=== PATIENT | male | born 1985 | race Caucasian/White ===

== ENCOUNTER 2017-02-03 20:10 | Emergency (ER) | payer SELFPAY ==
[2017-02-03] MEDS ORDERED: ACETAMINOPHEN 325 MG TABLET PO ONE (21:51)
[2017-02-03] MEDS ORDERED: HYDROCODONE/ACETAMINOPHEN 5-325 MG 6 TAB/DSPK PO PRN (23:27)
--- NOTE | 2017-02-03 23:30 | ER Document Report ---
HPI - HPI Patient complains to provider of: thumb injury Onset: Just prior to arrival Onset/Duration: Sudden Quality of pain: Sharp Pain Level: 4 Context: Patient states that he was working on a lower and the belt got caught on his right thumb pulling his thumb back. Patient complains of right thumb pain and swelling. Patient is right-hand dominant. Patient denies any other injury. Associated Symptoms: Other - Right thumb pain Exacerbated by: Movement Relieved by: Denies Similar symptoms previously: No Recently seen / treated by doctor: No - ROS ROS below otherwise negative: Yes Systems Reviewed and Negative: Yes All other systems reviewed and negative - CONSTITUTIONAL Constitutional: DENIES: Fever - NEURO Neurology: DENIES: Weakness - MUSCULOSKELETAL Musculoskeletal: REPORTS: Extremity pain - Right thumb, Swelling - DERM Skin Color: Normal Past Medical History - General Information source: Patient - Social History Smoking Status: Current Every Day Smoker Occupation: [employer] Family History: Other - ASTHMA IN SIBLINGS Patient has suicidal ideation: No Patient has homicidal ideation: No - Medical History Medical History: Negative Renal/ Medical History: Denies: Hx Peritoneal Dialysis Traumatic Medical History: Reports: Hx Fractures - right ankle fracture, metal shaving in right knee Surgical Hx: Negative - Immunizations Immunizations up to date: Yes Hx Diphtheria, Pertussis, Tetanus Vaccination: Yes Vertical Provider Document - CONSTITUTIONAL Agree With Documented VS: Yes Exam Limitations: No Limitations General Appearance: WD/WN, No Apparent Distress - INFECTION CONTROL TRAVEL OUTSIDE OF THE [place] IN LAST 30 DAYS: No - HEENT HEENT: Atraumatic, Normocephalic - NECK Neck: Normal Inspection - RESPIRATORY Respiratory: Breath Sounds Normal, No Respiratory Distress O2 Sat by Pulse Oximetry: 98 - CARDIOVASCULAR Cardiovascular: Regular Rate, Regular Rhythm Pulses: Normal: Radial - MUSCULOSKELETAL/EXTREMETIES Musculoskeletal/Extremeties: MAEW - Normal passive range of motion to right thumb, Tender - Right thumb tenderness to CMC joint with 2+ edema, Edema. negative: Eccymosis - NEURO Level of Consciousness: Awake, Alert, Appropriate Motor/Sensory: No Sensory Deficit - DERM Integumentary: Warm, Dry Course - Vital Signs Vital signs: Temp Pulse Resp BP Pulse Ox 97.9 F 64 18 158/106 H 98 02/03/17 21:48 02/03/17 21:48 02/03/17 21:48 02/03/17 21:48 02/03/17 21:48 - Diagnostic Test Radiology reviewed: Image reviewed, Reports reviewed Procedures - Immobilization Right Thumb Pre-Proc Neuro Vasc Exam: Normal Immobilizer type: Thumb spica Performed by: PCT Post-Proc Neuro Vasc Exam: Normal Alignment checked and good: Yes Discharge - Discharge Clinical Impression: Sprain of right thumb, Elevated blood pressure reading Condition: Stable Disposition: HOME, SELF-CARE Instructions: Sprained Thumb ([facility]), Splint Precautions ([facility]), Ice & Elevation ( [facility]), Oral Narcotic Medication ([facility]) Additional Instructions: Return immediately for any new or worsening symptoms Followup with your primary care provider, call tomorrow to make a followup appointment Follow up with a orthopedic Dr. for further evaluation, call Monday morning for an appointment Your blood pressure was elevated today, recheck with primary doctor Monday to have this rechecked. Prescriptions: Hydrocodone/Acetaminophen [[place] 5-325 Tablet] 1 each PO Q4 PRN #8 tablet PRN Reason: Forms: Elevated Blood Pressure, Return to Work Referrals: [facility] [Provider Group] - 02/06/17 [facility] [Provider Group] - 02/06/17
[2017-02-04 06:02] VITALS: BP 152/92
== END 2017-02-04 00:05 | disposition home or self-care (01) ==
LOC: ER 20:10
PROC: 2W3GX1Z Immobilization of Right Thumb using Splint (ICD-10-PCS; principal; 2017-02-03)
DX: S63.601A Unspecified sprain of right thumb, initial encounter (principal); W23.0XXA Caught, crushed, jammed, or pinched between moving objects, initial encounter; F17.200 Nicotine dependence, unspecified, uncomplicated
CPT/HCPCS: 99283

== ENCOUNTER 2017-08-25 16:30 | Emergency (ER) | payer SELFPAY ==
[2017-08-25 16:37] VITALS: BP 154/108
[2017-08-25] MEDS ORDERED: METRONIDAZOLE 500 MG TABLET PO ONE (17:47)
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
== END 2017-08-25 17:54 | disposition home or self-care (01) ==
LOC: ER 16:30
DX: Z20.2 Contact with and (suspected) exposure to infections with a predominantly sexual mode of transmission (principal); F17.200 Nicotine dependence, unspecified, uncomplicated
CPT/HCPCS: 87210; 99283

== ENCOUNTER 2019-09-18 09:41 | Emergency (ER) | payer OTHER ==
[2019-09-18 10:07] VITALS: BP 129/94
[2019-09-18] MEDS ORDERED: KETOROLAC TROMETHAMINE 60 MG/2 ML SDV IM ONE (10:19)
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
== END 2019-09-18 12:05 | disposition home or self-care (01) ==
LOC: ER 09:41
DX: M54.5 Low back pain (principal); V28.4XXA Motorcycle driver injured in noncollision transport accident in traffic accident, initial encounter; F17.200 Nicotine dependence, unspecified, uncomplicated
CPT/HCPCS: 99283; 96374; 72110; 71101; J1885

== ENCOUNTER 2019-12-10 21:06 | Emergency (ER) | payer SELFPAY ==
[2019-12-10] MEDS ORDERED: DEXAMETHASONE SOD PHOS INJ 10 MG/1 ML VIAL IM ONE (22:01)
[2019-12-10] MEDS ORDERED: CYCLOBENZAPRINE HCL 10 MG TABLET PO ONE (22:01)
[2019-12-10] MEDS ORDERED: KETOROLAC TROMETHAMINE 60 MG/2 ML SDV IM ONE (22:01)
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
[2019-12-10 23:14] VITALS: BP 153/97
== END 2019-12-10 23:47 | disposition home or self-care (01) ==
LOC: ER 21:06
DX: M54.5 Low back pain (principal); F17.200 Nicotine dependence, unspecified, uncomplicated
CPT/HCPCS: 99283; 96372; J1885; J1100

== ENCOUNTER 2019-12-13 13:32 | Emergency (ER) | payer OTHER ==
[2019-12-13 13:45] VITALS: BP 151/100
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
[2019-12-13] MEDS: KETOROLAC TROMETHAMINE 60 MG/2 ML SDV IM ONE ×2 (14:38→14:40)
== END 2019-12-13 14:40 | disposition home or self-care (01) ==
LOC: ER 13:32
DX: G89.29 Other chronic pain (principal); M54.42 Lumbago with sciatica, left side; F17.200 Nicotine dependence, unspecified, uncomplicated
CPT/HCPCS: 99283; J1885

== ENCOUNTER 2020-07-08 12:16 | Emergency (ER) | payer OTHER ==
[2020-07-08 13:41] LABS: ABSOLUTE BASOPHILS # (AUTO) 0.1 10^3/uL (0.0-0.2); ABSOLUTE EOSINOPHILS # (AUTO) 0.2 10^3/uL (0.0-0.6); ABSOLUTE LYMPHOCYTES (AUTO) 1.4 10^3/uL (0.5-4.7); ABSOLUTE MONOCYTES (AUTO) 1.1 10^3/uL (0.1-1.4); ABSOLUTE NEUT (AUTO) 7.5 10^3/uL (1.7-8.2); BASOPHILS % (AUTO) 0.5 % (0-2); EOSINOPHILS % (AUTO) 2.1 % (0-6); HEMATOCRIT 44.3 % (37.9-51.0); HEMOGLOBIN 15.9 g/dL (13.5-17.0); LYMPHOCYTES % (AUTO) 13.2 % (13-45); MEAN CORPUSCULAR HEMOGLOBIN 33.4 pg (27.0-33.4); MEAN CORPUSCULAR VOLUME 93 fl (80-97); MONOCYTES % (AUTO) 10.6 % (3-13); PLATELET COUNT 243 10^3/uL (150-450); RED BLOOD COUNT 4.78 10^6/uL (4.35-5.55); RED CELL DISTRIBUTION WIDTH 13.5 % (11.5-14.0); SEGMENTED NEUTROPHILS % (AUTO) 73.6 % (42-78); TOTAL CELLS COUNTED % (AUTO) 100 %; WHITE BLOOD COUNT 10.3 10^3/uL (4.0-10.5)
[2020-07-08] MEDS ORDERED: ACETAMINOPHEN 325 MG TABLET PO ONE (14:02)
[2020-07-08] MEDS ORDERED: DIPH/PERTUSS(ACELL)/TETANUS VAC/PF 0.5 ML SYR (>=10YO) IM ONE (14:02)
[2020-07-08] MEDS ORDERED: NORMAL SALINE 1000 ML 1,000 ML IV ONE (14:03)
[2020-07-08 14:05] LABS: ALBUMIN 4.5 g/dL (3.5-5.0); ALKALINE PHOSPHATASE 62 U/L (38-126); ANION GAP 11 (5-19); ASPARTATE AMINO TRANSFERASE 34 U/L (17-59); BILIRUBIN,DIRECT 0.2 mg/dL (0.0-0.4); BILIRUBIN,TOTAL 0.8 mg/dL (0.2-1.3); BLOOD UREA NITROGEN 8 mg/dL (7-20); CALCIUM 9.4 mg/dL (8.4-10.2); CARBON DIOXIDE 23 mmol/L (22-30); CHLORIDE 107 mmol/L (98-107); GLUCOSE 88 mg/dL (75-110); POTASSIUM 4.3 mmol/L (3.6-5.0); TOTAL PROTEIN 7.3 g/dL (6.3-8.2)
--- NOTE | 2020-07-08 14:33 | RADIOLOGY REPORT (SQ) ---
EXAM DESCRIPTION: CHEST SINGLE VIEW IMAGES COMPLETED DATE/TIME: 07/08/2020 2:24 pm REASON FOR STUDY: cough, fever COMPARISON: 09/28/2019 EXAM PARAMETERS: NUMBER OF VIEWS: One view. TECHNIQUE: Single frontal radiographic view of the chest acquired. RADIATION DOSE: NA LIMITATIONS: None. FINDINGS: LUNGS AND PLEURA: No opacities, masses or pneumothorax. No pleural effusion. MEDIASTINUM AND HILAR STRUCTURES: No masses. Contour normal. HEART AND VASCULAR STRUCTURES: Heart normal in size. Normal vasculature. BONES: No acute findings. HARDWARE: None in the chest. OTHER: No other significant finding. IMPRESSION: NO ACUTE RADIOGRAPHIC FINDING IN THE CHEST. TECHNICAL DOCUMENTATION: JOB ID: [id number] 2010 [employer]- All Rights Reserved Reading location - IP/workstation name: [email or web address]
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
[2020-07-08 15:12] LABS: A TYPE INFLUENZA AG NEGATIVE (NEGATIVE); B INFLUENZA AG NEGATIVE (NEGATIVE)
[2020-07-08 15:19] VITALS: BP 135/95
== END 2020-07-08 16:39 | disposition home or self-care (01) ==
LOC: ER 12:16
DX: J06.9 Acute upper respiratory infection, unspecified (principal); R50.9 Fever, unspecified; R05 Cough; R51 Headache; R53.81 Other malaise; R53.1 Weakness; R06.02 Shortness of breath; R09.89 Other specified symptoms and signs involving the circulatory and respiratory systems; F17.200 Nicotine dependence, unspecified, uncomplicated; Z20.828 Contact with and (suspected) exposure to other viral communicable diseases
CPT/HCPCS: 99284; 96360; 90471; 36415; 87070; 87880; 85025; 87635; 80053; 87804; 71045; 90715; J7030; C9803

== ENCOUNTER 2020-11-09 10:49 | Emergency (ER) | payer SELFPAY ==
[2020-11-09] MEDS ORDERED: KETOROLAC TROMETHAMINE 60 MG/2 ML SDV IM ONE (12:24)
--- NOTE | 2020-11-09 12:24 | ER Document Report ---
ED Neck/Back Problem - General Chief Complaint: Flank Pain Stated Complaint: LOWER BACK PAIN Primary Care Provider: TATIANNA,SARIAH [Primary Care Provider] - Follow up as needed Notes: CHIEF COMPLAINT: Right lower back pain for 2 weeks HPI: 35-year-old male with prior history of back injury presenting today for low back pain on the right side for 2 weeks. Does not wrap around the flank or go into the groin. No hematuria no penile or testicular pain. Pain is specifically worse with movement and positioning. He has taken no medications for his symptoms. Patient denies other complaints at this time but is concerned about a possible kidney stone ROS: See HPI - all other systems were reviewed and are otherwise negative Constitutional: no fever Eyes: no drainage, no blurred vision ENT: no runny nose, no sore throat Cardiovascular: no chest pain Resp: no SOB, no cough GI: no vomiting, no diarrhea, no abdominal pain : no dysuria Integumentary: no rash Allergy: no hives Musculoskeletal: no extremity pain or swelling, positive back pain Neurological: no numbness/tingling, no weakness MEDICATIONS: I agree with the patient medications as charted by the RN. ALLERGIES: I agree with the allergies as charted by the RN. PAST MEDICAL HISTORY/PAST SURGICAL HISTORY: Reviewed and agree as charted by RN. SOCIAL HISTORY: Reviewed and agree as charted by RN. FAMILY HISTORY: No significant familial comorbid conditions directly related to patient complaint EXAM: Reviewed vital signs as charted by RN. CONSTITUTIONAL: Alert and oriented and responds appropriately to questions. Well-appearing; well-nourished HEAD: Normocephalic; atraumatic EYES: PERRL; Conjunctivae clear, sclerae non-icteric ENT: normal nose; no rhinorrhea; moist mucous membranes; pharynx without lesions noted, no uvula edema or deviation, no tonsillar hypertrophy, phonation normal NECK: Supple without meningismus; non-tender; no cervical lymphadenopathy, no masses CARD: RRR; no murmurs, no clicks, no rubs, no gallops; symmetric distal pulses RESP: Normal chest excursion without splinting or tachypnea; breath sounds clear and equal bilaterally; no wheezes, no rhonchi, no rales, pulse oximetry 98% on room air not hypoxic ABD/GI: Normal bowel sounds; non-distended; soft, non-tender in the right lower quadrant right flank, no rebound, no guarding; no palpable organomegaly or masses. BACK: The back appears normal and is non-tender to palpation over the lumbar spine. There is right lateral lower lumbar muscular tenderness on palpation, there is no CVA tenderness EXT: Normal ROM in all joints; non-tender to palpation; no cyanosis, no effusions, no edema SKIN: Normal color for age and race; warm; dry; good turgor; no acute lesions noted NEURO: Moves all extremities equally; Motor and sensory function intact PSYCH: The patient's mood and manner are appropriate. Grooming and personal hygiene are appropriate. MDM: 35-year-old male with what I suspect is a musculoskeletal type back discomfort. No specific trauma recently but does have prior history of back issues. He has no pain wrapping around the flank to suggest a kidney stone pain has been constant for 2 weeks and is specific to palpation or movement. Will treat with Toradol, Voltaren, referral to orthopedics, will obtain urinalysis to ensure patient does not have gross hematuria. The patient was evaluated during the global COVID-19 pandemic and that diagnosis was suspected/considered upon their initial presentation. Their evaluation, treatment and testing was consistent with current guidelines for patients who present with complaints or symptoms that may be related to COVID-19 TRAVEL OUTSIDE OF THE [place] IN LAST 30 DAYS: No - Related Data Allergies/Adverse Reactions: acetaminophen Adverse Reaction (Verified 11/09/20 11:47) Past Medical History - Social History Smoking Status: Current Every Day Smoker Chew tobacco use (# tins/day): No Frequency of alcohol use: Occasional Drug Abuse: None Family History: Reviewed & Not Pertinent, Other - ASTHMA IN SIBLINGS Renal/ Medical History: Denies: Hx Peritoneal Dialysis Musculoskeletal Medical History: Reports Hx Musculoskeletal Trauma Traumatic Medical History: Reports: Hx Fractures - right ankle fracture, metal shaving in right knee - Immunizations Immunizations up to date: Yes Hx Diphtheria, Pertussis, Tetanus Vaccination: Yes Physical Exam - Vital signs Vitals: Temp Pulse Resp BP Pulse Ox 98.7 F 95 20 156/105 H 96 11/09/20 10:53 11/09/20 10:53 11/09/20 10:53 11/09/20 10:53 11/09/20 10:53 Course - Re-evaluation Re-evalutation: 11/09/20 12:51 Urine does not show evidence of infection or blood. Will discharge on anti- inflammatory and muscle relaxer with orthopedic referral - Vital Signs Vital signs: Temp Pulse Resp BP Pulse Ox 98.7 F 95 20 156/105 H 96 11/09/20 10:53 11/09/20 10:53 11/09/20 10:53 11/09/20 10:53 11/09/20 10:53 - Laboratory Results Laboratory Results Interpreted: 11/09/20 12:09 Ur Leukocyte Esterase TRACE H Critical Laboratory Results Reviewed: No Critical Results - Radiology Results Critical Radiology Results Reviewed: No Critical Results Discharge - Discharge Clinical Impression: Right low back pain Qualifiers: Chronicity: acute Sciatica presence: without sciatica Qualified Code(s): M54.5 - Low back pain Condition: Stable Disposition: HOME, SELF-CARE Instructions: Low Back Pain ([facility]) Additional Instructions: 1. Warm heat to the lower back twice daily 2. no heavy lifting for 2-3 days 3. medications as prescribed, no driving on muscle relaxers 4. follow up with orthopedics for further evaluation and treatment as needed for any continuing pain or problems, call for appt. 5. return to the ER for any onset of incontinence of urine, fever > 101 or worsening condition Prescriptions: Methocarbamol [Robaxin 750 mg Tablet] 750 mg PO TID #21 tablet Diclofenac Sodium [Voltaren 50 Mg Tablet.Dr] 50 mg PO BID #20 tablet. Referrals: POP SALAS DO [ACTIVE STAFF] - Follow up as needed
[2020-11-09 12:30] LABS: APPEARANCE,URINE CLEAR; BILIRUBIN,URINE NEGATIVE (NEGATIVE); COLOR,URINE YELLOW; GLUCOSE, URINE NEGATIVE (NEGATIVE); KETONES,URINE NEGATIVE (NEGATIVE); LEUKOCYTE ESTERASE,URINE TRACE (NEGATIVE); NITRITE,URINE NEGATIVE (NEGATIVE); PROTEIN,URINE NEGATIVE (NEGATIVE); URINE SPECIFIC GRAVITY 1.019; UROBILINOGEN,URINE NEGATIVE mg/dL (<2.0)
[2020-11-09 14:18] VITALS: BP 150/94
== END 2020-11-09 14:33 | disposition home or self-care (01) ==
LOC: ER 10:49
DX: M54.5 Low back pain (principal); R10.9 Unspecified abdominal pain; Z88.8 Allergy status to other drugs, medicaments and biological substances; F17.200 Nicotine dependence, unspecified, uncomplicated
CPT/HCPCS: 99284; 96372; 81001; J1885